=== PATIENT | female | born 1955 | race Caucasian/White ===

== ENCOUNTER 2018-03-24 11:49 | Emergency (ER) | payer MEDICARE, MEDICAID ==
[2018-03-24] MEDS ORDERED: traMADol HCl 50 MG TAB ONE (12:08)
== END 2018-03-24 12:17 | disposition home or self-care (01) ==
LOC: MADERS 11:49
DX: M54.5 Low back pain (principal); Z76.0 Encounter for issue of repeat prescription; F17.210 Nicotine dependence, cigarettes, uncomplicated
CPT/HCPCS: 99283